=== PATIENT | female | born 1985 | race Two or more races ===

== ENCOUNTER 2024-11-17 22:15 | Emergency (ER) | payer MEDICAID ==
[~2024-11-17] VITALS: Ht 170.2 cm; Wt 81.0 kg
[2024-11-17] MEDS: PROPARACAINE HCL 0.5% 15 ML OPHTHALMIC SOLUTION OD ONE (23:29)
[2024-11-17 23:31] LABS: PLATELET COUNT (AUTO) 257 K/uL (150-450); RED BLOOD CELL COUNT(AUTO) 3.83 MIL/uL (4.00-5.20); RED CELL DISTRIBUTION WIDTH 13.9 % (11.5-14.5); WHITE BLOOD COUNT (AUTO) 5.0 K/uL (4.5-11.0)
[2024-11-17 23:38] LABS: CALCIUM, TOTAL 8.5 mg/dL (8.8-10.5); CREATININE 0.82 mg/dL (0.60-1.30); GLOMERULAR FILTR. RATE CALC > 60 mL/min (>60); GLUCOSE,RANDOM 111 mg/dL (70-110); SODIUM SERUM 134 mmol/L (136-145); UREA NITROGEN, BLOOD 15 mg/dL (7-18)
[2024-11-17] MEDS ORDERED: FLUORESCEIN SODIUM 1 MG STRIP ONE (23:38)
[2024-11-17 23:51] LABS: HCG,QUANTITATIVE < 1 mIU/mL (0-6)
[2024-11-17 23:59] LABS: LACTIC ACID 0.4 mmol/L (0.4-2.0)
[2024-11-18] MEDS: PIPERACILLIN/TAZO 3.375 GM/D5W 50 ML IV ONE
[2024-11-18] MEDS: TOBRAMYCIN/DEXAMETHASONE 5 ML OPHTHALMIC SUSPENSION OD ONE
[2024-11-18] MEDS: KETOROLAC TROMETHAMINE 30 MG/ML VIAL IVP ONE (00:01)
[2024-11-18] MEDS ORDERED: IOHEXOL 350 MG/ML 100 ML VIAL ONE (00:17)
[2024-11-18] MEDS ORDERED: SODIUM CHLORIDE 0.9% 100 ML ONE (00:17)
[2024-11-18] MEDS ORDERED: CEPH-558 PO (01:31)
[2024-11-18] MEDS ORDERED: TOBR5DRO44 OD (01:31)
[2024-11-18] MEDS ORDERED: SULF1TAB42 PO (01:31)
[2024-11-18 01:53] VITALS: BP 119/68; PULSE 89; RESP 18; TEMP 97.3; O2SAT 98
== END 2024-11-18 01:55 | disposition home or self-care (01) ==
LOC: EMS 22:25
DX: H10.89 Other conjunctivitis (principal); L03.213 Periorbital cellulitis; R22.0 Localized swelling, mass and lump, head; F17.210 Nicotine dependence, cigarettes, uncomplicated; Z79.899 Other long term (current) drug therapy
CPT/HCPCS: 99285; 80048; 83605; 84702; 85025; 87040; 36415; 84145; 96365; 70487; 96375; J1885; J2543; Q9967; J7050